=== PATIENT | female | born 1970 | race Caucasian/White ===

== ENCOUNTER → 2017-08-27 15:26 | Outpatient (CLI) | payer OTHER, SELFPAY | PROVIDERS: Family Provider Internal Medicine; PCP Internal Medicine; Visit Provider Otolaryngology Otolaryngology/Facial Plastic Surgery | DX: J32.9 Chronic sinusitis, unspecified (principal) | CPT/HCPCS: 87070; 87205 ==

== ENCOUNTER 2019-03-20 19:02 | Emergency (ER) | payer OTHER, SELFPAY ==
[2019-03-20 19:03] VITALS: BP 147/80; PULSE 86; RESP 16; TEMP 36.7; O2SAT 99; BMI 38.0
--- NOTE | 2019-03-20 20:37 | CT_ITS ---
STUDY: CT BRAIN WITHOUT CONTRAST REASON FOR EXAM: Female, 49 years old. Headache for 3 days. RADIATION DOSAGE (If Supplied By Facility): CTDIvol = ( 44.99 ) mGy, DLP = ( 762.36 ) mGycm TECHNIQUE: Transaxial CT imaging of the brain was performed without administration of intravenous contrast material. Individualized dose optimization techniques were used for this CT. COMPARISON: No relevant priors. FINDINGS: Normal soft tissue structures. Normal calvarium. Normal size ventricles and extra-axial spaces for the patient's age. Normal white matter tracts of the cerebral hemispheres. Normal basal ganglia and thalami. Normal brainstem. Normal cerebellum. There is no intracranial hemorrhage. There are no findings of an acute ischemic infarction. Normal visualized paranasal sinuses. CT/Brain/Head without Contrast IMPRESSION: No evidence of acute intracranial bleed, mass or ischemia. Electronically Signed: Bartolo Wen DO at 21:52 EDT , Service support ,
[2019-03-20 21:29] VITALS: PULSE 86; RESP 16
[2019-03-20 22:17] LABS: Absolute Lymphocyte Count 3.38 X10^3/uL (0.83-4.51); Absolute Neutrophil Count 6.9 X10^3/uL (2.0-7.7); Basophil# 0.09 X10^3/uL; Basophil% 0.8 % (0-1); Eosinophil# 0.28 X10^3/uL; Eosinophils% 2.4 % (0-5); Hematocrit 42.4 % (37-47); Hemoglobin 13.9 g/dL (12.0-15.0); Lymphocyte # 3.38 X10^3/ul (4.0); Lymphocyte % 29.2 % (19-41); Mean Corp Hgb Conc 32.8 g/dL (32-36); Mean Corpuscular Hgb 29.2 pg (27.0-32.0); Mean Corpuscular Volume 89.1 fL (81-99); Mean Platelet Vol. 10.6 fl (6.2-12.0); Monocyte# 0.85 X10^3/uL; Monocyte% 7.3 % (0-10); NRBC Flagged by Analyzer 0 % (0-5); Neutrophil # 6.94 X10^3/uL (2.7-7.7); Platelet Count 278 K/mm3 (150-450); RBC Distribution Width CV 12.3 % (11.6-14.6); RBC Distribution Width SD 40.5 fl (35.1-43.9); Red Blood Count 4.76 M/mm3 (4.2-5.4); White Blood Count 11.6 K/mm3 (4.4-11.0)
[2019-03-20 22:25] LABS: Partial Thromboplast Time 30.9 Seconds (24.1-36.2)
[2019-03-20 22:28] LABS: International Normalized Ratio 1.1; Prothrombin Time (Protime)PT. 14.2 SECONDS (11.7-14.9)
[2019-03-20 22:37] LABS: Anion Gap 8 (5-15); BUN 13 mg/dL (7-18); BUN/Creat Ratio 13.1 RATIO (10-20); Calcium,Total 9.4 mg/dL (8.5-10.1); Chloride 105 mmol/L (98-107); Creatinine, Serum 0.99 mg/dL (0.55-1.02); EST Glomerular Filtration Rate 63 mL/min (>60); Est Glom Filt Rate - Afr Amer 76 mL/min (>60); Estimated Creatinine Clearance 63.64 ml/min; Glucose 97 mg/dL (74-106); Potassium 3.6 mmol/L (3.5-5.1); Sodium Level 140 mmol/L (136-145)
--- NOTE | 2019-03-20 22:57 | ED.VISSUMM ---
- ER Visit Summary Date of Service: 03/20/19 Chief Complaint: Headache History of Present Illness: The patient is a 49 F who presents with a headache that is been getting worse over the past 3 days. Patient describes pain as tightness and pressure. Patient states pain is over the bilateral frontal areas. Patient states she has been taking Motrin which does help. Patient states that today she noted some ecchymosis over the lateral aspect of her right upper eyelid. Patient also admits to some tingling of the left side of her face and left fingers. Patient states she has a strong family history of vascular dementia and she is concerned that there may be vascular problems causing her headache. Physical Examination: Vital signs are stable. Patient is afebrile. Patient is in no acute distress. Pupils are equal, round, and reactive to light bilaterally. Extraocular muscles are intact. There is a small area of ecchymosis over the lateral aspect of the right upper eyelid. There is no tenderness. There is no edema. Oral mucosa is pink and moist. Neck is supple. Trachea is midline. There is no JVD noted. Heart was regular rate and rhythm. Lungs are clear and equal bilaterally. Abdomen is soft. Bowel sounds are normal. There is no tenderness. There is no guarding noted. Skin is warm dry. Cranial nerves II through XII are intact. There are no focal motor or sensory deficits noted. Test Results: CT scan of the brain was obtained. There is no acute intracranial abnormality. CBC and basic metabolic profile were normal. PT with INR was normal. Emergency Department Course and Treatment: Patient did not want an IV or medications. Patient was advised of her results. Patient was feeling better on reevaluation. Patient was instructed to follow-up with her primary care physician in 5 to 7 days. Patient understood and was agreeable with the plan. All questions were answered. Disposition: Discharge home Impression: Headache This note was generated with [employer] dictation software. It may contain incorrect words, spelling, and punctuation that were not noted in review of the chart prior to signing ED Disposition - Plan for ED Patient: Disposition: Home or Assisted Living Diagnosis: Headache Instructions: HEADACHE, Unspecified Referrals: Yohan Ervin MD [Primary Care Provider] - 5-7 Days
[2019-03-20 23:02] VITALS: BP 125/78; RESP 16
== END 2019-03-20 23:06 | disposition home or self-care (01) ==
PROVIDERS: Emergency Provider Emergency Medicine; Family Provider Internal Medicine; PCP Internal Medicine
DX: R51 Headache (principal); I10 Essential (primary) hypertension; E66.9 Obesity, unspecified; Z68.38 Body mass index [BMI] 38.0-38.9, adult; Z79.899 Other long term (current) drug therapy
CPT/HCPCS: 36415; 70450; 80048; 85025; 85610; 85730; 99282; A4216

== ENCOUNTER → 2020-02-05 07:54 | Outpatient (CLI) | payer OTHER, SELFPAY ==
--- NOTE | 2020-02-05 08:04 | US_ITS ---
STUDY: RENAL ULTRASOUND - COMPLETE REASON FOR EXAM: Female, 49 years old. CKD STAGE II TECHNIQUE: Ultrasound evaluation of the kidneys was performed with real-time and static chong-scale imaging. COMPARISON: None. FINDINGS: RIGHT KIDNEY: Normal location of the right kidney, which is normal in size. The right kidney measures 10.7 cm x 4.9 cm x 4.7 cm. There is a normal cortex of the right kidney. The renal cortex measures 1.8 cm. There is no right renal mass or cyst. There are no right renal calculi. There is no right hydronephrosis. DISTAL RIGHT URETER: There is non-visualization of the distal right ureter. There is no demonstrated right ureterovesical junction calculus. There is no demonstrated right ureteral jet. LEFT KIDNEY: Normal location of the left kidney, which is normal in size. The left kidney measures 10 cm x 4 cm x 4.9 cm. There is a normal cortex of the left kidney. The renal cortex measures 1.4 cm. There is no left renal mass or cyst. There are no left renal calculi. There is no left hydronephrosis. DISTAL LEFT URETER: There is non-visualization of the distal left ureter. There is no demonstrated left ureterovesical junction calculus. There is no demonstrated left ureteral jet. BLADDER: The distended urinary bladder has a volume of 113 ml. There is a normal wall thickness of the distended urinary bladder. There is no demonstrated mass within the urinary bladder. There are no demonstrated bladder calculi. US/Kidney and Bladder IMPRESSION: Normal ultrasound of the kidneys and urinary bladder. Electronically Signed: Jairo Borrero, at 11:13 EDT , Service support ,
== END ==
PROVIDERS: PCP Internal Medicine; Referring Provider Internal Medicine Nephrology; Visit Provider Internal Medicine Nephrology
DX: N18.2 Chronic kidney disease, stage 2 (mild) (principal)
CPT/HCPCS: 76770

== ENCOUNTER → 2020-06-04 09:31 | Outpatient (CLI) | payer OTHER, SELFPAY ==
[2020-06-04 10:31] LABS: Albumin, Serum 3.8 g/dL (3.2-5.0); BUN 17 mg/dL (7-18); BUN/Creat Ratio 17.1 RATIO (10-20); Calcium,Total 8.9 mg/dL (8.5-10.1); Chloride 106 mmol/L (98-107); Creatinine, Serum 0.99 mg/dL (0.55-1.02); EST Glomerular Filtration Rate 63 mL/min (>60); Est Glom Filt Rate - Afr Amer 76 mL/min (>60); Glucose 135 mg/dL (74-106); Phosphorus 3.4 mg/dL (2.5-4.9); Potassium 3.9 mmol/L (3.5-5.1); Sodium Level 138 mmol/L (136-145)
== END ==
PROVIDERS: PCP Internal Medicine; Referring Provider Internal Medicine Nephrology; Visit Provider Internal Medicine Nephrology
DX: N18.2 Chronic kidney disease, stage 2 (mild) (principal)
CPT/HCPCS: 36415; 80069

== ENCOUNTER → 2020-06-23 11:56 | Outpatient (CLI) | payer OTHER, SELFPAY ==
--- NOTE | 2020-06-23 12:01 | RAD_ITS ---
STUDY: X-RAY - LEFT WRIST REASON FOR EXAM: Female, 50 years old. Pain in hands x 2 years, swelling in hands x 2 years TECHNIQUE: 2 view(s) of the wrist were obtained. COMPARISON: None. FINDINGS: Normal visualized distal radius and ulna. Normal radiocarpal articulation. Normal distal radioulnar articulation. Normal carpal bones. Normal carpal articulations. Normal carpometacarpal articulation of the thumb. Normal second through fifth carpometacarpal articulations. Normal visualized metacarpal bones. The soft tissue structures are unremarkable. RAD/Wrist 2 Views IMPRESSION: Normal x-ray examination of the wrist. Electronically Signed: Jt Crowley MD at 13:05 EST , Service support ,
--- NOTE | 2020-06-23 12:06 | RAD_ITS ---
STUDY: X-RAY - SACROILIAC JOINTS REASON FOR EXAM: Female, 50 years old. Pain in hips and lower back x years, pain has worsened in last 2 years TECHNIQUE: 4 view(s) of the sacroiliac joints were obtained. COMPARISON: None. FINDINGS: There are degenerative changes of the bilateral sacroiliac joints with subtle subchondral erosions.. Normal visualized sacral ala and sacrum. Normal visualized iliac bones. Normal visualized soft tissue structures. RAD/S-I Jts 3 or More Views IMPRESSION: Degenerative changes of the bilateral sacroiliac joints, as described above. Electronically Signed: Jt rCowley MD at 13:05 EST , Service support ,
--- NOTE | 2020-06-23 12:06 | RAD_ITS ---
STUDY: X-RAY - RIGHT WRIST REASON FOR EXAM: Female, 50 years old. Pain in hands x 2 years, swelling in hands x 2 years TECHNIQUE: 2 view(s) of the wrist were obtained. COMPARISON: None. FINDINGS: Normal visualized distal radius and ulna. Normal radiocarpal articulation. Normal distal radioulnar articulation. Normal carpal bones. Normal carpal articulations. Normal carpometacarpal articulation of the thumb. Normal second through fifth carpometacarpal articulations. Normal visualized metacarpal bones. The soft tissue structures are unremarkable. RAD/Wrist 2 Views IMPRESSION: Normal x-ray examination of the wrist. Electronically Signed: Jt Crowley MD at 13:04 EST , Service support ,
[2020-06-29 20:07] LABS: HLA B27 Negative (.)
== END ==
PROVIDERS: PCP Internal Medicine
DX: L40.9 Psoriasis, unspecified (principal); M25.59 Pain in other specified joint
CPT/HCPCS: 36415; 72202; 73100; 81374

== ENCOUNTER → 2020-07-28 11:21 | Outpatient (CLI) | payer OTHER, SELFPAY ==
[2020-07-28 11:30] LABS: Bacteria 0 SEEN /hpf (None Seen); Mucous, Urine 0 SEEN /hpf (<or=2+); Red Blood Cells-Urine 0 SEEN /hpf (0-5); Squamous Epithelial Cells - UA 0 SEEN /hpf (5-10); White Blood Cells 0 SEEN /hpf (0-5)
--- NOTE | 2020-07-28 11:40 | RAD_ITS ---
STUDY: X-RAY - LEFT HAND REASON FOR EXAM: Female, 50 years old. Pain. TECHNIQUE: 2 view(s) of the hand. COMPARISON: None. FINDINGS: Normal radiocarpal articulation. Normal distal radioulnar joint. Normal visualized carpal bones. Normal carpal articulations Normal carpometacarpal articulation of the thumb. Normal second through fifth carpometacarpal joints. Normal metacarpi. Normal metacarpophalangeal joint of the thumb. Normal interphalangeal joint of the thumb. Normal proximal and distal phalanges of the thumb. Normal metacarpophalangeal joints of the second through fifth fingers. Normal proximal and distal interphalangeal joints of the second through fifth fingers. Normal phalanges of the second through fifth fingers. The soft tissue structures are unremarkable. RAD/Hand 2 Views IMPRESSION: Normal x-ray examination of the hand. Electronically Signed: Jorge Hansen MD at 12:19 EST , Service support ,
--- NOTE | 2020-07-28 11:40 | RAD_ITS ---
STUDY: X-RAY - RIGHT HAND REASON FOR EXAM: Female, 50 years old. Pain. TECHNIQUE: 2 view(s) of the hand. COMPARISON: None. FINDINGS: Normal radiocarpal articulation. Normal distal radioulnar joint. Normal visualized carpal bones. Normal carpal articulations Normal carpometacarpal articulation of the thumb. Normal second through fifth carpometacarpal joints. Normal metacarpi. Normal metacarpophalangeal joint of the thumb. Normal interphalangeal joint of the thumb. Normal proximal and distal phalanges of the thumb. Normal metacarpophalangeal joints of the second through fifth fingers. Normal proximal and distal interphalangeal joints of the second through fifth fingers. Normal phalanges of the second through fifth fingers. The soft tissue structures are unremarkable. RAD/Hand 2 Views IMPRESSION: Normal x-ray examination of the hand. Electronically Signed: Jorge Hansen MD at 12:19 EST , Service support ,
[2020-07-28 12:06] LABS: Color, Urine Yellow (Yellow); Glucose, Dipstick Normal (Normal); Ketone-Dipstick Negative (Negative); Leukocyte Esterase-Dipstick Negative /ul (Negative); Nitrite-Dipstick Negative (Negative); Occult Blood-Urine Negative /ul (Negative); Protein-Dipstick Negative (Negative); Urine Bilirubin Dipstick Negative (Negative); Urine Clarity Clear (Clear); Urine Urobilinogen Normal (Normal); Urine pH 6.5 (5.0 - 8.0)
[2020-07-29 14:09] LABS: RNP Ab <0.2 AI (0.0-0.9); Smith Ab <0.2 AI (0.0-0.9)
[2020-07-29 14:46] LABS: Anti-dsDNA Ab <1 IU/mL (0-9)
[2020-07-30 08:08] LABS: Dilute Prothrombin Time (dPT) 43.6 sec (0.0-55.0); Dilute Russell Viper Venom 40.5 sec (0.0-47.0); PTT-LA 37.7 sec (0.0-51.9); Thrombin Time 17.2 sec (0.0-23.0); dPT Confirm Ratio 1.15 Ratio (0.00-1.40)
[2020-07-30 10:21] LABS: Anti-Cardiolipin Ab, IgA, Qn < 9 APL U/mL (0-11); Anti-Cardiolipin Ab, IgG, Qn < 9 GPL U/mL (0-14); Anti-Cardiolipin Ab, IgM, Qn 13 MPL U/mL (0-12); Beta-2-Glycoprotein I IgA <9 (0-25); Beta-2-Glycoprotein I IgG <9 (0-20); Beta-2-Glycoprotein I IgM <9 (0-32); Complement C3 156 mg/dL (82-167); Interpretation Comment: (.)
== END ==
PROVIDERS: PCP Internal Medicine
DX: R76.0 Raised antibody titer (principal); M25.59 Pain in other specified joint
CPT/HCPCS: 36415; 73120; 81001; 86146; 86147; 86160; 86225; 86235

== ENCOUNTER → 2020-08-20 12:33 | Outpatient (CLI) | payer OTHER, SELFPAY ==
--- NOTE | 2020-08-20 13:00 | MRI_ITS ---
STUDY: MRI SACROILIAC JOINTS REASON FOR EXAM: Low back and bilateral hip pain, evaluate for erosions of the sacroiliac joints. TECHNIQUE: Standardized fat and water weighted pulse sequences were obtained in all 3 orthogonal planes. COMPARISON: Radiographs 06/23/2020. FINDINGS: Normal bilateral sacral alae. There is subchondral sclerosis adjacent to the left sacroiliac joint (T1 coronal images 16-18). There are no osseous erosions or periarticular bone edema of the bilateral sacroiliac joints. There is limited visualization of the bilateral iliac wings, without demonstrated abnormality. Normal visualized sacral vertebrae. There is mild anterolisthesis of the second coccygeal segment (T1 sagittal image 18). Normal visualized presacral adipose space. The visualized soft tissue structures of the pelvis are unremarkable. MRI/Pelvis (Routine) IMPRESSION: Subchondral sclerosis adjacent to the left sacroiliac joint without osseous erosions of the sacroiliac joints or periarticular bone edema to indicate active spondyloarthropathy. Mild anterolisthesis of the second coccygeal segment.. Electronically Signed: Ramirez Rachel MD at 13:53 EDT Tel , Service support ,
== END ==
PROVIDERS: PCP Internal Medicine
DX: M46.1 Sacroiliitis, not elsewhere classified (principal); M14.88 Arthropathies in other specified diseases classified elsewhere, vertebrae
CPT/HCPCS: 72195

== ENCOUNTER → 2020-09-17 15:31 | Outpatient (CLI) | payer OTHER, SELFPAY | PROVIDERS: PCP Internal Medicine; Referring Provider Otolaryngology; Visit Provider Otolaryngology | DX: J32.9 Chronic sinusitis, unspecified (principal) | CPT/HCPCS: 87070; 87205 ==

== ENCOUNTER → 2020-11-22 10:50 | Outpatient (CLI) | payer OTHER, SELFPAY | PROVIDERS: PCP Internal Medicine; Referring Provider Internal Medicine Nephrology; Visit Provider Internal Medicine Nephrology | DX: Z00.00 Encounter for general adult medical examination without abnormal findings (principal) ==

== ENCOUNTER → 2020-11-23 11:06 | Outpatient (CLI) | payer OTHER, SELFPAY ==
[2020-11-23 12:05] LABS: Albumin, Serum 3.8 g/dL (3.2-5.0); BUN 18 mg/dL (7-18); BUN/Creat Ratio 18.3 RATIO (10-20); Calcium,Total 8.8 mg/dL (8.5-10.1); Chloride 106 mmol/L (98-107); Creatinine, Serum 0.99 mg/dL (0.55-1.02); EST Glomerular Filtration Rate 63 mL/min (>60); Est Glom Filt Rate - Afr Amer 76 mL/min (>60); Glucose 116 mg/dL (74-106); Phosphorus 3.4 mg/dL (2.5-4.9); Potassium 3.9 mmol/L (3.5-5.1); Sodium Level 137 mmol/L (136-145)
== END ==
PROVIDERS: PCP Internal Medicine; Referring Provider Internal Medicine Nephrology; Visit Provider Internal Medicine Nephrology
DX: N18.2 Chronic kidney disease, stage 2 (mild) (principal)
CPT/HCPCS: 36415; 80069

== ENCOUNTER → 2021-01-28 09:54 | Outpatient (CLI) | payer OTHER, SELFPAY ==
[2021-01-28 10:56] LABS: Protein, Urine (Random) 9.1 mg/dL (<11.9); Protein:Creat Ratio 75 mg/g CRE (0-200)
[2021-01-28 11:04] LABS: Albumin, Serum 3.7 g/dL (3.2-5.0); BUN 19 mg/dL (7-18); BUN/Creat Ratio 20.9 RATIO (10-20); Calcium,Total 9.3 mg/dL (8.5-10.1); Chloride 104 mmol/L (98-107); Creatinine, Serum 0.91 mg/dL (0.55-1.02); EST Glomerular Filtration Rate 69 mL/min (>60); Est Glom Filt Rate - Afr Amer 84 mL/min (>60); Glucose 134 mg/dL (74-106); Phosphorus 3.3 mg/dL (2.5-4.9); Potassium 3.8 mmol/L (3.5-5.1); Sodium Level 138 mmol/L (136-145)
== END ==
PROVIDERS: PCP Internal Medicine; Referring Provider Internal Medicine Nephrology; Visit Provider Internal Medicine Nephrology
DX: N18.2 Chronic kidney disease, stage 2 (mild) (principal)
CPT/HCPCS: 36415; 80069; 82570; 84156

== ENCOUNTER → 2021-02-01 11:12 | Outpatient (CLI) | payer OTHER, SELFPAY ==
[2021-02-01 11:18] LABS: Bacteria 0 SEEN /hpf (None Seen); Mucous, Urine 0 SEEN /hpf (<or=2+); Red Blood Cells-Urine 0 SEEN /hpf (0-5); Squamous Epithelial Cells - UA 0 SEEN /hpf (5-10); White Blood Cells 0 SEEN /hpf (0-5)
[2021-02-01 12:06] LABS: Color, Urine Straw (Yellow); Glucose, Dipstick Normal (Normal); Ketone-Dipstick Negative (Negative); Leukocyte Esterase-Dipstick Negative /ul (Negative); Nitrite-Dipstick Negative (Negative); Occult Blood-Urine Negative /ul (Negative); Protein-Dipstick Negative (Negative); Urine Bilirubin Dipstick Negative (Negative); Urine Clarity Clear (Clear); Urine Urobilinogen Normal (Normal); Urine pH 6.5 (5.0 - 8.0)
== END ==
PROVIDERS: PCP Internal Medicine; Referring Provider Internal Medicine Nephrology; Visit Provider Internal Medicine Nephrology
DX: N39.0 Urinary tract infection, site not specified (principal)
CPT/HCPCS: 81001

== ENCOUNTER 2021-02-17 13:08 | Observation (INO) | payer OTHER, SELFPAY ==
[2021-02-17] VITALS (16 sets, daily range): BP systolic 108–143; BP diastolic 62–88; PULSE 64–85; RESP 13–18; TEMP 36.6–36.7; O2SAT 96–100; BMI 41.4; BMI 39.3
--- NOTE | 2021-02-17 13:15 | RAD_ITS ---
STUDY: X-RAY CHEST REASON FOR EXAM: Female, 50 years old. Neuro deficit, acute, stroke suspected TECHNIQUE: Single AP portable view of the chest. COMPARISON: Comparison is made with prior study dated 09/28/2011. FINDINGS: EKG electrodes are seen. The lungs are clear and expanded. There is no demonstrated pleural abnormality. Normal size heart. Normal mediastinum and sunita. Normal visualized pulmonary arteries. Normal visualized aortic arch and descending thoracic aorta. Normal visualized thoracic spine. Normal visualized ribs, clavicles, and shoulders. There is no demonstrated abnormality of the visualized soft tissue structures of the upper abdomen. RAD/Chest 1 View IMPRESSION: Normal x-ray examination of the chest. Electronically Signed: Jairo Borrero MD at 14:18 EDT , Service support ,
--- NOTE | 2021-02-17 13:15 | CT_ITS ---
STUDY: CT HEAD STROKE PROTOCOL W/O CONTRAST INJECTION REASON FOR EXAM: Female, 50 years old. Neuro deficit, acute, stroke suspected RADIATION DOSAGE (If Supplied By Facility): CTDIvol = ( 38.43 ) mGy, DLP = ( 698.28 ) mGycm TECHNIQUE: Transaxial CT imaging of the brain was performed without administration of intravenous contrast material. Individualized dose optimization techniques were used for this CT. COMPARISON: Comparison is made with prior examination in 03/20/2019. FINDINGS: Normal soft tissue structures. Normal calvarium. Normal size ventricles and extra-axial spaces for the patient''s age. Normal white matter tracts of the cerebral hemispheres. Normal basal ganglia and thalami. Normal brainstem. Normal cerebellum. There is no intracranial hemorrhage. There are no findings of an acute ischemic infarction. Normal visualized paranasal sinuses. CT/STROKE Brain/Head without Cont IMPRESSION: Normal unenhanced CT scan of the brain. N.B. : The above Results were Read Back by Jairo Borrero MD to Moustapha Hinton and understanding confirmed on 02/17/2021 13:27:57 (ET). Electronically Signed: Jairo Borrero MD at 13:29 EDT , Service support ,
--- NOTE | 2021-02-17 13:15 | EKG12_ITS ---
Test Reason : STROKE Blood Pressure : / mmHG Vent. Rate : 084 BPM Atrial Rate : 084 BPM P-R Int : 152 ms QRS Dur : 084 ms QT Int : 394 ms P-R-T Axes : 052 004 030 degrees QTc Int : 465 ms Normal sinus rhythm Normal ECG Confirmed by MICHOACANO COWAN, MAREK ([id number]), animal pathology teacher ELIF BACH ([id number]) on 02/21/2021 7:56:49 AM Referred By: BB/RU Confirmed By:MAREK RÍOS MD
--- NOTE | 2021-02-17 13:16 | EDS_ITS ---
HPI History of Present Illness Chief Complaint: Neuro S/Sx Informant: patient Onset/Context/Timing Onset: Today Context: Sudden Onset Timing: Continuous Quality and Location: Positive for Left Face Parasthesia, Left Arm Parasthesia and Left Leg Parasthesia Associated Symptoms Associated Symptoms: Positive for Headache; Negative for Nausea, Vomiting and Chest Pain Narrative Narrative: Starting at 930 this morning while she was driving home from an appointment, she started having fuzzy vision mild headache, trouble putting thoughts together. This progressed to developing numbness and some weakness in her left arm and leg, as well as some paresthesias in her left lower face only. The symptoms have all persisted. She can speak okay and understand others okay. No history of stroke or migraines or seizures. No recent injury, travel, hospitalization, or illness. She has decided not to get Covid vaccine. She states her head feels funny/fuzzy. Had a similar episode once before but it did not last very long and she did not get seen for it. [facility] Medical History (Updated 02/17/21 @ 13:[address] Moustapha Hinton MD) Chronic kidney disease Hypertension Home Medications spironolactone 50 mg PO DAILY 02/04/16 [History Last Taken 02/17/21] bisoprolol-hydrochlorothiazide 1 tab PO DAILY 03/20/19 [History Last Taken 02/17/21] cholecalciferol (vitamin D3) 25 mcg PO DAILY 02/17/21 [History Last Taken 02/17/21] cranberry fruit 475 mg PO BID 02/17/21 [History Last Taken 02/17/21] losartan 25 mg PO DAILY 02/17/21 [History Last Taken 02/17/21] multivitamin 1 tab PO DAILY 02/17/21 [History Last Taken 02/16/21] pantoprazole 20 mg PO DAILY 02/17/21 [History Last Taken 02/17/21] turmeric root extract 500 mg PO DAILY 02/17/21 [History Last Taken 02/17/21] Allergy/AdvReac Type Severity Reaction Status Date / Time ciprofloxacin [From Cipro] Allergy Rash Verified 02/17/21 13:24 codeine Allergy Rash Verified 02/17/21 13:24 Penicillins Allergy Rash Verified 02/17/21 13:24 Sulfa (Sulfonamide Allergy Anaphylaxis Verified 02/17/21 13:24 Antibiotics) zolpidem [From Ambien] Allergy Rash Verified 02/17/21 13:24 OPIATES Allergy Itching Uncoded 02/17/21 13:24 Surgical History (Updated 02/17/21 @ 13:24 by Ju Ferreira) History of hysterectomy Social History Smoking Status: Never smoker ROS ROS ED Constitutional Constitutional ED: Denies chills or fever(s) Eyes Eyes: Reports change in vision bilateral; Denies diplopia ENT ENT ED: Denies rhinorrhea or sore throat Cardiovascular Cardiovascular: Denies chest pain or palpitations Respiratory/Chest Respiratory/Chest: Denies cough or dyspnea Gastrointestinal Gastrointestinal: Denies abdominal pain, diarrhea, nausea or vomiting Genitourinary Genitourinary ED: Denies dysuria or hematuria Musculoskeletal Musculoskeletal: Denies back pain or neck pain Integumentary Denies abscess or rash Neurologic Neurologic: Reports headache(s), paresthesias and weakness Psychiatric Psychiatric: Denies anxiety or suicidal thoughts EXAM Physical Exam Const Vital Signs: 02/17/21 13:09 02/17/21 13:12 02/17/21 13:28 Temperature 98 F 98 F Temperature Source Temporal Temporal Pulse Rate 85 85 Respiratory Rate 16 16 Blood Pressure 143/88 H 143/88 H Blood Pressure Mean 106 106 Blood Pressure Source Blood Pressure Position Blood Pressure Location Pulse Ox 98 98 Oxygen Delivery Method Room Air Room Air Room Air 02/17/21 13:38 02/17/21 13:45 02/17/21 14:15 Temperature Temperature Source Pulse Rate 74 74 77 Respiratory Rate 15 18 16 Blood Pressure 143/88 H 112/66 108/81 H Blood Pressure Mean 106 81 90 Blood Pressure Source Monitor Blood Pressure Position Sitting Blood Pressure Location Right Arm Pulse Ox 96 97 97 Oxygen Delivery Method Room Air Room Air Room Air 02/17/21 14:45 02/17/21 15:15 02/17/21 15:45 Temperature Temperature Source Pulse Rate 72 78 74 Respiratory Rate 18 16 16 Blood Pressure 113/62 113/80 Blood Pressure Mean 79 91 Blood Pressure Source Blood Pressure Position Blood Pressure Location Pulse Ox 97 96 Oxygen Delivery Method Room Air Room Air 02/17/21 16:15 02/17/21 16:40 Temperature Temperature Source Pulse Rate 64 74 Respiratory Rate 18 16 Blood Pressure Blood Pressure Mean Blood Pressure Source Blood Pressure Position Blood Pressure Location Pulse Ox 98 97 Oxygen Delivery Method Room Air Room Air Positive well nourished and well developed General Appearance ED: well developed and NAD HEENT Reports moist mucous membranes normocephalic and atraumatic Eyes PERRL and EOMs intact bilaterally Neck full ROM and supple Resp normal respiratory effort and clear to auscultation bilaterally Cardio regular rate, regular rhythm and no murmurs GI non-tender and non-distended Auscultation: normoactive bowel sounds Palpation: soft Back/Spine no CVA tenderness General Back: other FROM Extremity normal to inspection General Extremety ED: Negative for edema, pulses abnormal or tenderness General Extremity: Negative for edema or pulses abnormal Neuro oriented x3 Neuro Narrative: Normal [id number] and [id number]. No aphasia or dysarthria. No hemineglect. Sensorium / Orientation: awake and alert Skin no rashes or lesions noted and no wounds STROKE Vital Signs/Narrative: Vital Signs Temp Pulse Resp BP Pulse Ox 02/17/21 16:40 74 16 97 02/17/21 16:15 64 18 98 02/17/21 15:45 74 16 02/17/21 15:15 78 16 113/80 96 02/17/21 14:45 72 18 113/62 97 02/17/21 14:15 77 16 108/81 H 97 02/17/21 13:45 74 18 112/66 97 02/17/21 13:38 74 15 143/88 H 96 02/17/21 13:12 98 F 85 16 143/88 H 98 02/17/21 13:09 98 F 85 16 143/88 H 98 NIHSS Initial: 1a Level of Consciousness: 0 1b LOC Questions (Score 2 if aphasic/stupor): 0 1c LOC Commands (Only score 1st attempt): 0 2 Best Gaze (If aphasic, use reflexive mvmts.): 0 3 Visual: 0 4 Facial Palsy: 0 5 Motor Arm Right (UN = amputation/fusion): 0 5 Motor Arm Left: 0 6 Motor Leg Right: 0 6 Motor Leg Left: 1 7 Limb ataxia (Only + if out of proportion): 0 8 Sensory (Aphasia/stupor=0 or 1, coma=2): 1 9 Best Language: 0 10 Dysarthria (mute, coma=2, intubated=UN): 0 11 Extinction and Inattention (only scored if +): 0 Total Score: 2 MDM MDM MDM Narrative Medical decision making narrative: Discussed with patient about alteplase, she states that she is somewhat familiar with it and used to work in an emergency department. She agrees that these deficits, if caused by stroke, would be a disabling deficit. We discussed pros and cons of TPA including 6% risk of hemorrhage, she would be agreeable to getting the medication. It was ordered, she was sent to CT, it is negative, we discussed risk and benefits and she is okay getting alteplase. It was ordered. The patient returned from CT, it was negative, her symptoms are still there. Neurology did their assessment after discussing with her. She has no drift in her left lower extremity now, the patient states that her head is feeling better, her vision is now back to normal, and as the alteplase arrives the patient states that the tingling is imp roving but still present in her left lower face, left hand, left foot. The neurologist states that her deficits are too minimal and improving and does NOT recommend giving alteplase at this time, which is about 4 hours from the onset of symptoms. I discussed again with the patient regarding her symptoms and whether they were improving or still there, we discussed the fact that she was having trouble walking prior to coming here. We immediately disconnected her from the monitor and got her up to walk, she walked around the room twice and said that she felt like it was normal and her head was feeling better. Therefore we will be admitting her for further work-up without giving TPA at this time since she was a candidate and things changed. CTA was obtained and negative for LVO. Lab Data Attestation: I reviewed the patient's lab results. Labs: Laboratory Results - last 24 hr 02/17/21 02/17/21 02/17/21 13:25 13:25 13:25 WBC 11.7 H RBC 4.89 Hgb 14.2 Hct 43.0 MCV 87.9 MCH 29.0 MCHC 33.0 RDW Std Deviation 41.1 RDW Coeff of Javed 12.7 Plt Count 325 MPV 10.3 Immature Gran % (Auto) 0.500 Neut % (Auto) 61.8 Lymph % (Auto) 27.8 Stark % (Auto) 7.0 Eos % (Auto) 2.3 Baso % (Auto) 0.6 Absolute Neuts (auto) 7.2 Absolute Lymphs (auto) 3.24 Nucleated RBC % 0 PT 13.2 INR 1.1 APTT 31.8 Sodium 137 Potassium 3.7 Chloride 102 Carbon Dioxide 30.0 Anion Gap 5 BUN 20 H Creatinine 1.02 Estim Creat Clear Calc 58.72 Est GFR (MDRD) Af Amer 73 Est GFR (MDRD) Non-Af 61 BUN/Creatinine Ratio 19.6 Glucose 117 H Calcium 9.3 Troponin I High Sens 5 Radiography Diagnostic Testing: Radiology Impression Brain CT 02/17/21 13:15 IMPRESSION: Normal unenhanced CT scan of the brain. N.B. : The above Results were Read Back by Jairo Borrero MD to Moustapha Hinton and understanding confirmed on 02/17/2021 13:27:57 (ET). Electronically Signed: Jairo Borrero MD at 13:29 EDT , Service support , ADDENDUM: 02/17/21 1336 IMPRESSION: Normal unenhanced CT scan of the brain. N.B. : The above Results were Read Back by Jairo Borrero MD to Moustapha Hinton and understanding confirmed on 02/17/2021 13:27:57 (ET). Electronically Signed: Jairo Borrero MD at 13:29 EDT , Service support , Chest X-Ray 02/17/21 13:15 IMPRESSION: Normal x-ray examination of the chest. Electronically Signed: Jairo Borrero MD at 14:18 EDT , Service support , Head/Neck CTA 02/17/21 13:42 IMPRESSION: Normal CTA Head and neck with contrast. Electronically Signed: Jairo Borrero MD at 14:30 EDT , Service support , EKG Initial EKG: Attestation: I personally reviewed and interpreted this EKG as follows: Interpretation: Sinus Rhythm and No Acute Injury Pattern Comments: Normal EKG Stroke Documentation Questions Stroke Team Activated: Yes Reviewed Inclusion/Exclusion criteria: Yes Was Patient considered for Endovascular Intervention?: No (Negative CTA) IV Alteplase (t-PA) Administered: No (See above) Alteplase (t-PA) risks, benefits, alternative discussed: Yes Critical Care Time Critical Care Time: Yes Critical care time (excluding procedures): 30-74 minutes (40 min), Including time spent:, Discussing w/Patient &/or Family/Screener [employer] Blender, Discussing w/Consultants, Arranging Admission or Transfer and Performing Direct Patient Care at Bedside Discharge Plan Dx/Rx/DC Orders Clinical Impression: Brain TIA Disposition Disposition: Acute Care Hospital [facility]
[2021-02-17 13:34] LABS: Absolute Lymphocyte Count 3.24 X10^3/uL (0.83-4.51); Absolute Neutrophil Count 7.2 X10^3/uL (2.0-7.7); Basophil# 0.07 X10^3/uL; Basophil% 0.6 % (0-1); Eosinophil# 0.27 X10^3/uL; Eosinophils% 2.3 % (0-5); Hemoglobin 14.2 g/dL (12.0-15.0); Lymphocyte # 3.24 X10^3/ul (0.83-4.51); Lymphocyte % 27.8 % (19-41); Mean Corpuscular Volume 87.9 fL (81-99); Mean Platelet Vol. 10.3 fl (6.2-12.0); Monocyte# 0.82 X10^3/uL; NRBC Flagged by Analyzer 0 % (0-5); Neutrophil # 7.19 X10^3/uL (2.7-7.7); Neutrophil % 61.8 % (47-70); Platelet Count 325 K/mm3 (150-450); RBC Distribution Width CV 12.7 % (11.6-14.6); RBC Distribution Width SD 41.1 fl (35.1-43.9); Red Blood Count 4.89 M/mm3 (4.2-5.4); White Blood Count 11.7 K/mm3 (4.4-11.0)
--- NOTE | 2021-02-17 13:42 | CT_ITS ---
STUDY: CTA HEAD AND NECK WITH CONTRAST REASON FOR EXAM: Female, 50 years old. Acute neurologic deficit RADIATION DOSAGE (If Supplied By Facility): CTDIvol = ( 22.16 ) mGy, DLP = ( 703.58 ) mGycm TECHNIQUE: CT angiography was performed with a multi-detector CT scanner. Data acquisition was obtained from the skull base through the vertex following intravenous administration of IV 100mL [id number]-370. MIP images were reconstructed from the axial data set. Post-processing of the angiographic images was performed, with multiplanar reformation and 3D reconstruction. Individualized dose optimization techniques were used for this CT. COMPARISON: No relevant priors. FINDINGS: Normal bilateral petrous carotid arteries. Normal right cavernous carotid artery with a normal supraclinoid bifurcation. Normal left cavernous carotid artery with a normal supraclinoid bifurcation. Normal right A1 segments of the anterior cerebral artery. Normal left A1 segments of the anterior cerebral artery. Normal intact anterior communicating artery (ACOM). Normal bilateral A2 segments of the anterior cerebral arteries. Normal right M1 and M2 segments of the middle cerebral arteries, with a normal M1 bifurcation. Normal left M1 and M2 segments of the middle cerebral arteries, with a normal M1 bifurcation. Normal right posterior communicating artery (PCOM). Normal left posterior communicating artery (PCOM). Normal bilateral vertebral arteries. Normal basilar artery with a normal basilar bifurcation. The visualized bilateral superior cerebellar (SCA) arteries are normal. Normal bilateral P1, P2 and visualized P3 segments of the posterior cerebral arteries. There is no demonstrated aneurysm of the [place]. There is no demonstrated abnormality of the visualized brain. AORTIC ARCH: There is atherosclerotic calcific plaque formation of the aortic arch and great vessels arising from the aortic arch, without a hemodynamically significant stenosis. There is a bovine origin of the great vessels with a common origin of the brachiocephalic and left common carotid artery. Normal origin of the left subclavian artery. RIGHT CAROTID ARTERIES: Normal right common carotid artery (CCA). Normal right common carotid bulb. Normal origin of the right internal carotid (ICA) artery without a hemodynamically significant stenosis. Normal visualized cervical portion of the right internal carotid artery. Normal origin of the right external carotid artery (ECA). LEFT CAROTID ARTERIES: Normal left common carotid artery (CCA). Normal left common carotid bulb. Normal origin of the left internal carotid (ICA) artery without a hemodynamically significant stenosis. Normal visualized cervical portion of the left internal carotid artery. Normal origin of the left external carotid artery (ECA). VERTEBRAL ARTERIES: Normal bilateral vertebral arteries. CT/CTA Head AND Neck W/ Contrast IMPRESSION: Normal CTA Head and neck with contrast. Electronically Signed: Jairo Borrero MD at 14:30 EDT , Service support ,
[2021-02-17 13:43] LABS: International Normalized Ratio 1.1; Partial Thromboplast Time 31.8 Seconds (24.1-36.2); Prothrombin Time (Protime)PT. 13.2 SECONDS (11.7-14.9)
[2021-02-17 13:50] LABS: Anion Gap 5 (5-15); BUN 20 mg/dL (7-18); BUN/Creat Ratio 19.6 RATIO (10-20); Calcium,Total 9.3 mg/dL (8.5-10.1); Chloride 102 mmol/L (98-107); Creatinine, Serum 1.02 mg/dL (0.55-1.02); EST Glomerular Filtration Rate 61 mL/min (>60); Est Glom Filt Rate - Afr Amer 73 mL/min (>60); Estimated Creatinine Clearance 58.72 ml/min; Glucose 117 mg/dL (74-106); Potassium 3.7 mmol/L (3.5-5.1); Sodium Level 137 mmol/L (136-145); Troponin-I HS 5 pg/mL (3.0-54.0)
[2021-02-17] MEDS: 0.9% Normal Saline 1,000 ML 100 ML IV (14:00)
--- NOTE | 2021-02-17 17:21 | HP.PCM.HOS_ITS ---
HPI - General General Date of Admission: 02/17/21 Date of Service: 02/17/21 Chief Complaint: Left-sided numbness HPI Narrative SONIA HART, is a 50 F who presents presents with left-sided numbness. Last night, patient had a headache. Today, with water aerobics and felt well and felt energized. Shortly afterwards, patient felt some pressure behind her eyes. She went home and pressure became frontal headache and shortly afterwards started experiencing left-sided numbness. Was concerned and presented to the emergency room. In the emergency room, patient underwent a head CT showed no acute process. There contemplating the patient TPA but the patient's neurologic symptoms were improving so decision was made to not give TPA and to admit the patient. Patient stated her headache is much better at this time. Patient has had intermittent headaches before but never had any neurologic symptoms like this before. Patient has never had a TIA or stroke before. FORMERLY [facility] Medical History Chronic kidney disease Hypertension Psoriatic arthritis Home Medications spironolactone 50 mg PO DAILY 02/04/16 [History Last Taken 02/17/21] bisoprolol-hydrochlorothiazide 1 tab PO DAILY 03/20/19 [History Last Taken 02/17/21] cholecalciferol (vitamin D3) 25 mcg PO DAILY 02/17/21 [History Last Taken 02/17/21] cranberry fruit 475 mg PO BID 02/17/21 [History Last Taken 02/17/21] losartan 25 mg PO DAILY 02/17/21 [History Last Taken 02/17/21] multivitamin 1 tab PO DAILY 02/17/21 [History Last Taken 02/16/21] pantoprazole 20 mg PO DAILY 02/17/21 [History Last Taken 02/17/21] turmeric root extract 500 mg PO DAILY 02/17/21 [History Last Taken 02/17/21] Allergy/AdvReac Type Severity Reaction Status Date / Time ciprofloxacin [From Cipro] Allergy Rash Verified 02/17/21 13:24 codeine Allergy Rash Verified 02/17/21 13:24 Penicillins Allergy Rash Verified 02/17/21 13:24 Sulfa (Sulfonamide Allergy Anaphylaxis Verified 02/17/21 13:24 Antibiotics) zolpidem [From Ambien] Allergy Rash Verified 02/17/21 13:24 OPIATES Allergy Itching Uncoded 02/17/21 13:24 Family History (Updated 02/17/21 @ 17:[address] Rafiq Crowe DO) Other CVA (cerebral vascular accident) Dementia Heart disease Surgical History History of hysterectomy Social History (Updated 02/17/21 @ 17:[address] Rafiq Crowe DO) adopted: No household members: spouse current occupational exposures/hazards: No Smoking Status: Never smoker alcohol intake: current alcohol intake frequency: a few times a month substance use type: does not use ROS ROS Narrative All review of systems were negative except as mentioned above in the history of present illness and the other review of systems. Vital Signs Vital Signs Vital Signs: 02/17/21 13:09 02/17/21 13:12 02/17/21 13:28 Temperature 36.6 C 36.6 C Temperature Source Temporal Temporal Pulse Rate 85 85 Respiratory Rate 16 16 Blood Pressure 143/88 H 143/88 H Blood Pressure Mean 106 106 Blood Pressure Source Blood Pressure Position Blood Pressure Location Pulse Ox 98 98 Oxygen Delivery Method Room Air Room Air Room Air 02/17/21 13:38 02/17/21 13:45 02/17/21 14:15 Temperature Temperature Source Pulse Rate 74 74 77 Respiratory Rate 15 18 16 Blood Pressure 143/88 H 112/66 108/81 H Blood Pressure Mean 106 81 90 Blood Pressure Source Monitor Blood Pressure Position Sitting Blood Pressure Location Right Arm Pulse Ox 96 97 97 Oxygen Delivery Method Room Air Room Air Room Air 02/17/21 14:45 02/17/21 15:15 02/17/21 15:45 Temperature Temperature Source Pulse Rate 72 78 74 Respiratory Rate 18 16 16 Blood Pressure 113/62 113/80 Blood Pressure Mean 79 91 Blood Pressure Source Blood Pressure Position Blood Pressure Location Pulse Ox 97 96 Oxygen Delivery Method Room Air Room Air 02/17/21 16:15 02/17/21 16:40 Temperature Temperature Source Pulse Rate 64 74 Respiratory Rate 18 16 Blood Pressure Blood Pressure Mean Blood Pressure Source Blood Pressure Position Blood Pressure Location Pulse Ox 98 97 Oxygen Delivery Method Room Air Room Air Weight Weight: 112.9 kg Body Mass Index (BMI) 41.4 Physical Exam Const alert, oriented x3, no apparent distress and healthy appearing General Appearance: cooperative HEENT normocephalic and head/scalp atraumatic Eyes PERRL and EOMs intact bilaterally Neck no lymphadenopathy and no JVD Resp normal respiratory effort, no retractions, no use of accessory muscles and clear to auscultation bilaterally Cardio regular rate, regular rhythm, S1 normal heart sound and S2 normal heart sound GI normal to inspection, nondistended, normoactive bowel sounds, soft to palpation and non-distended Extremity normal to inspection and full ROM Skin no rashes or lesions noted, no wounds and skin turgor normal Neuro oriented x3, CN's II-XII intact bilaterally, moves all extremities and no focal motor deficits Sensorium / Orientation: awake and alert Coordination / Balance: [id number]-[id number] test normal and cgyu-jr-[id number] test normal Speech: speech normal Motor Exam: strength 5/5 throughout Psych affect normal Results Lab / Micro Data Attestation: I reviewed the patient's lab results. Result Diagrams: 02/17/21 13:25 02/17/21 13:25 Labs: Laboratory Results - last 24 hr 02/17/21 13:25: WBC 11.7 H, RBC 4.89, Hgb 14.2, Hct 43.0, MCV 87.9, MCH 29.0, MCHC 33.0, RDW Std Deviation 41.1, RDW Coeff of Javed 12.7, Plt Count 325, MPV 10.3, Immature Gran % (Auto) 0.500, Neut % (Auto) 61.8, Lymph % (Auto) 27.8, [place] % (Auto) 7.0, Eos % (Auto) 2.3, Baso % (Auto) 0.6, Absolute Neuts (auto) 7.2, Absolute Lymphs (auto) 3.24, Nucleated RBC % 0 02/17/21 13:25: PT 13.2, INR 1.1, APTT 31.8 02/17/21 13:25: Sodium 137, Potassium 3.7, Chloride 102, Carbon Dioxide 30.0, Anion Gap 5, BUN 20 H, Creatinine 1.02, Estim Creat Clear Calc 58.72, Est GFR (MDRD) Af Amer 73, Est GFR (MDRD) Non-Af 61, BUN/Creatinine Ratio 19.6, Glucose 117 H, Calcium 9.3, Troponin I High Sens 5 EKG Initial EKG: Attestation: I personally reviewed and interpreted this EKG as follows: Prior EKG tracings: available for review EKG Rhythm Intrepretation: Sinus Rhythm Radiology Impression Brain CT 02/17/21 13:15 IMPRESSION: Normal unenhanced CT scan of the brain. N.B. : The above Results were Read Back by Jairo Borrero MD to Moustapha Hinton and understanding confirmed on 02/17/2021 13:27:57 (ET). Electronically Signed: Jairo Borrero MD at 13:29 EDT , Service support , ADDENDUM: 02/17/21 1336 IMPRESSION: Normal unenhanced CT scan of the brain. N.B. : The above Results were Read Back by Jairo Borrero MD to Moustapha Hinton and understanding confirmed on 02/17/2021 13:27:57 (ET). Electronically Signed: Jairo Borrero MD at 13:29 EDT , Service support , Chest X-Ray 02/17/21 13:15 IMPRESSION: Normal x-ray examination of the chest. Electronically Signed: Jairo Borrero MD at 14:18 EDT , Service support , Head/Neck CTA 02/17/21 13:42 IMPRESSION: Normal CTA Head and neck with contrast. Electronically Signed: Jairo Borrero MD at 14:30 EDT , Service support , Assessment & Plan Assessment/Plan (1) Left sided numbness: PLAN: 1. Left-sided numbness * Improving * Current NIH is 0 * Did not receive TPA as symptoms were improving from presentation * Seen by [facility] teleneurology who recommend MRI of the brain. Patient had a CTA of the brain so I will not be ordering an MRA. Check lipid panel. * Etiology could be stroke/TIA or atypical migraine. This was discussed with the patient. * Additionally, will have therapy evaluation, bedside swallow evaluation as well as a 2D echocardiogram 2. Psoriatic arthritis * No obvious joint degeneration * Patient not interested in methotrexate at this time * Recommend follow-up with rheumatology as outpatient 3. VTE prophylaxis: Not indicated as patient is currently observation status at this time. 4.Prior history of COVID-19. Patient said that she contracted an [place]. She has not been vaccinated. I encouraged patient to get vaccinated. Patient made aware that she could receive the vaccine while she is here in the hospital. She did not answer in the affirmative whether or not she would take it or not. 4 Charges/Coding Visit Charges OBSV E&M: 69552 Initial observation care L3
--- NOTE | 2021-02-17 17:25 | ECHOD_ITS ---
Reason For Study: TIA/CVA Procedure This was a 2D Doppler, Color Flow transthoracic echocardiogram. Exam performed portable in patient room. Left Ventricle Normal left ventricle. The estimated ejection fraction is EF 55-60 %. Right Ventricle Normal right ventricle. Normal systolic function. Atria Normal left atrium. Normal right atrium. Mitral Valve The mitral valve is structurally normal. No prolapse or stenosis seen. Tricuspid Valve Normal tricuspid valve. Aortic Valve Normal aortic valve. Pulmonic Valve The pulmonic valve is not well visualized. Great Vessels Normal aortic root. Pericardium/Pleural No pericardial effusion. Medication Performed a rapid injection of agitated mix of 9 cc saline and 1cc air to assess for atrial septal defect. MMode/2D Measurements & Calculations LVIDd: 4.9 cm IVSd: 0.84 cm Ao root diam: 3.3 cm LVIDs: 3.5 cm LVPWd: 0.76 cm RVDd: 3.2 cm FS: 29.4 % LAV(MOD-bp): 64.2 ml LA A4 area: 21.8 cm2 LA dimension(2D): 4.0 cm LAV(MOD-bp) Indexed: 29.9 ml/m2 LAV(MOD-sp2): 61.8 ml LAV(MOD-sp4): 59.7 ml RA A4 area: 10.5 cm2 Time Measurements MV dec time: 0.19 sec Doppler Measurements & Calculations MV E max dwaine: 80.4 cm/sec Lat Peak E' Dwaine: 10.8 cm/sec Med Peak E' Dwaine: 6.9 cm/sec MV A max dwaine: 71.5 cm/sec E/E' lat: 7.4 E/E' med: 11.6 MV E/A: 1.1 Ao V2 max: 135.1 cm/sec LV V1 max: 122.6 cm/sec PA V2 max: 94.7 cm/sec Ao max P.3 mmHg LV V1 max P.0 mmHg ECHO/Echo Complete Interpretation Summary The estimated ejection fraction is EF 55-60 %. Normal LV systolic function No prior echo to compare Ordering Physician: Rafiq Crowe Referring Physician: Yohan Ervin Performed By: Sahra Youngblood RDCS, RVT
[2021-02-17] MEDS: Acetaminophen 325 MG Tablet 650 MG PO (18:01)
[2021-02-17 18:08] LABS: Troponin-I HS 6 pg/mL (3.0-54.0)
--- NOTE | 2021-02-17 18:40 | PCS.PANDOC ---
PANDEMIC DOCUMENTATION INITIATED: Date: 01/03/2021 Time: 190
[2021-02-18] VITALS (8 sets, daily range): BP systolic 104–118; BP diastolic 63–75; PULSE 62–76; RESP 12–16; TEMP 36.5–36.8; O2SAT 94–98; BMI 39.3
[2021-02-18 08:03] LABS: Cholesterol 191 mg/dL (200); High Density Lipoprotein 36 mg/dL; Triglycerides 227 mg/dL; Very Low Density Lipoprotein 45 mg/dL (5-40)
[2021-02-18 08:31] LABS: Bedside Glucose 107 mg/dL (70-110)
--- NOTE | 2021-02-18 09:30 | MRI_ITS ---
STUDY: MRI BRAIN WITHOUT CONTRAST REASON FOR EXAM: Female, 50 years old. left sided weakness TECHNIQUE: Standardized multiplanar fat and water weighted pulse sequences were obtained. COMPARISON: CT Brain Feb 17 2021 FINDINGS: Normal size of the ventricles and extra-axial spaces for the patient''s age. Normal white matter tracts of the supratentorial brain. Normal bilateral basal ganglia. Normal thalami. There is no extra-axial fluid accumulation. Normal flow voids within the major intracranial circulation suggesting patency by spin echo criteria. Normal sella turcica, pituitary gland, infundibular stalk, optic chiasm and hypothalamus. Normal tectal plate and pineal gland. Normal midbrain, jethro and medulla. Normal cerebellum. MRI/Brain without Contrast IMPRESSION: Unremarkable unenhanced MRI of the brain. Electronically Signed: Eber Cox MD at 8:27 EDT Tel , Service support ,
[2021-02-18] MEDS: Ketorolac 15 MG/ML Vial IV (09:57)
[2021-02-18] MEDS: Spironolactone 50 MG Tablet PO (09:58)
[2021-02-18] MEDS: Losartan Potassium 25 MG Tablet PO (09:58)
[2021-02-18] MEDS: Pantoprazole Sodium 20 MG Tablet PO (09:58)
[2021-02-18] MEDS: hydroCHLOROthiazide 6.25mg TAB 6.25 MG PO (09:58)
[2021-02-18] MEDS: Cholecalciferol (VIT D3) 25 MCG TABLET (1,000 UNITS) PO (09:58)
[2021-02-18] MEDS: 0.9% Saline Lock 10 ML Syringe IV (10:01)
[2021-02-18] MEDS: Bisoprolol Fumarate 5 MG Tablet 2.5 MG PO (10:09)
--- NOTE | 2021-02-18 13:16 | CASEMGMT ---
SW did not complete a PHQ9 as patient did not have a Stroke or TIA per physician. Valentina [place]
--- NOTE | 2021-02-18 15:08 | PCM.DC.SUM ---
Providers Date of Admission: 02/17/21 Primary Care Physician: Dr. Yohan Ervin MD Reason For Visit: TIA Diagnosis Discharge Diagnosis (1) Left sided numbness: Status: Acute Code(s): R20.0 - Anesthesia of skin (2) Atypical migraine: Status: Acute Code(s): G43.009 - Migraine without aura, not intractable, without status migrainosus Medications at Discharge Home Medications spironolactone 50 mg PO DAILY 02/04/16 bisoprolol-hydrochlorothiazide 1 tab PO DAILY 03/20/19 cholecalciferol (vitamin D3) 25 mcg PO DAILY 02/17/21 cranberry fruit 475 mg PO BID 02/17/21 losartan 25 mg PO DAILY 02/17/21 multivitamin 1 tab PO DAILY 02/17/21 pantoprazole 20 mg PO DAILY 02/17/21 turmeric root extract 500 mg PO DAILY 02/17/21 ibuprofen 800 mg PO DAILY PRN #1 tab 02/18/21 sumatriptan succinate [Imitrex] 50 mg PO Q2H PRN #10 tab 02/18/21 Hospital Course Operations None Procedures 2-D Echocardiogram Summary of Care Provided Minutes Spent on Discharge: 28 Hospital Course: 50-year-old female presents with headache and left-sided weakness. Please refer to the history and physical for more specific details. Patient underwent an MRI that showed no evidence of a stroke. Patient said that her headache began the day before and then got worse after doing water aerobics and then was experiencing left-sided numbness. Patient is NIH in my evaluation was 0. Patient did receive a dose of Toradol and that seemed to eventually alleviated her symptoms. Patient still with low-grade headache at this time but much better. Discussed with patient that this is likely an atypical migraine given her history of migraines and also the negative MRI. Patient expressed and apprehensions about NSAIDs given her CKD 2. But tolerated it be okay if it every once in a while to take. Patient also be given prescription for sumatriptan to take for abortive agents for migraines. Patient states that she is only had 2 migraines over the past couple months I do not feel any counter prophylaxis is necessary at this time. Patient will be discharged home in stable condition. Concern for underlying sleep apnea. Patient advised to follow-up pulmonology for polysomnogram. Physical Exam Const alert Resp normal respiratory effort, no retractions, no use of accessory muscles and clear to auscultation bilaterally Cardio regular rate, regular rhythm, S1 normal heart sound and S2 normal heart sound GI normal to inspection, nondistended, normoactive bowel sounds, soft to palpation, non-tender and non-distended Weight / BMI Weight Weight: 110.5 kg Body Mass Index (BMI) 39.3 ABG / Lab / Microbiology Data Result Diagrams: 02/17/21 13:25 02/17/21 13:25 Laboratory: Laboratory Results - last 24 hr 02/17/21 13:10: POC Glucose 107 02/17/21 17:46: Troponin I High Sens 6 02/18/21 06:30: Triglycerides 227 H, Cholesterol 191, LDL Cholesterol 110, VLDL Cholesterol 45 H, HDL Cholesterol 36 L Radiography Diagnostic Testing: Radiology Impression Brain MRI 02/18/21 09:30 IMPRESSION: Unremarkable unenhanced MRI of the brain. Electronically Signed: Eber Cox MD at 8:27 EDT Tel , Service support , D/C Instructions Discharge Diet: No restrictions Meaningful Use Info Meaningful Use Diagnoses (Choose all that apply): None applicable Discharge Plan Admission Admit Date/Time: 02/17/21 17:08 Primary Reason for Your Visit: Atypical Migraine. Attending Provider: Rafiq Crowe Primary Care Provider: Yohan Ervin Discharge Orders/Prescriptions Prescriptions: New sumatriptan succinate [Imitrex] 50 mg tablet 50 mg PO Q2H PRN (Reason: migraine headache) Qty: 10 RF: 0 ibuprofen 800 mg tablet 800 mg PO DAILY PRN (Reason: pain) Qty: 1 RF: 0 Continued spironolactone 50 MG tablet 50 mg PO DAILY RF: 0 bisoprolol-hydrochlorothiazide 2.5-6.2 tablet 1 tab PO DAILY RF: 0 pantoprazole 20 mg tablet,delayed release (DR/EC) 20 mg PO DAILY RF: 0 losartan 25 mg tablet 25 mg PO DAILY RF: 0 multivitamin Tablet 1 tab PO DAILY RF: 0 cholecalciferol (vitamin D3) 25 mcg (1,000 unit) Capsule 25 mcg PO DAILY RF: 0 cranberry fruit 475 mg Capsule 475 mg PO BID RF: 0 turmeric root extract 500 mg Capsule 500 mg PO DAILY RF: 0 Referrals / Follow Up: Teo Brown MD [STAFF PHYSICIAN] - Within 1 Month (Concern for JIMENA. ) Yohan Ervin MD [Primary Care Provider] - Within 1 Week Disposition Disposition (needs filled in before D/C Order can be placed): Home, Self Care Charges/Coding Visit Charges Inpatient E&M: 87166 Disch Hosp
--- NOTE | 2021-02-18 15:08 | PCM.DC ---
Discharge Instructions Diet Discharge Diet: No restrictions Activity Discharge Activity: Return to Normal Activity Dressing / Incision Call your doctor if you observe: - (unilateral weakness or numbness. Intractable headache. ) Follow Up Care Test Results: Test results from this visit will be discussed in further detail at your follow-up appointment, if applicable. Discharge Plan Admission Admit Date/Time: 02/17/21 17:08 Primary Reason for Your Visit: Atypical Migraine. Attending Provider: Rafiq Crowe Primary Care Provider: Yohan Ervin Discharge Orders/Prescriptions Prescriptions: New sumatriptan succinate [Imitrex] 50 mg tablet 50 mg PO Q2H PRN (Reason: migraine headache) Qty: 10 RF: 0 ibuprofen 800 mg tablet 800 mg PO DAILY PRN (Reason: pain) Qty: 1 RF: 0 Continued spironolactone 50 MG tablet 50 mg PO DAILY RF: 0 bisoprolol-hydrochlorothiazide 2.5-6.2 tablet 1 tab PO DAILY RF: 0 pantoprazole 20 mg tablet,delayed release (DR/EC) 20 mg PO DAILY RF: 0 losartan 25 mg tablet 25 mg PO DAILY RF: 0 multivitamin Tablet 1 tab PO DAILY RF: 0 cholecalciferol (vitamin D3) 25 mcg (1,000 unit) Capsule 25 mcg PO DAILY RF: 0 cranberry fruit 475 mg Capsule 475 mg PO BID RF: 0 turmeric root extract 500 mg Capsule 500 mg PO DAILY RF: 0 Referrals / Follow Up: Yohan Ervin MD [Primary Care Provider] - Within 1 Week Disposition Disposition (needs filled in before D/C Order can be placed): Home, Self Care
== END 2021-02-18 15:12 | disposition home or self-care (01) ==
LOC: ED 13:42 → PCU 02-18 07:28
PROVIDERS: Emergency Provider Emergency Medicine; PCP Internal Medicine
DX: G43.009 Migraine without aura, not intractable, without status migrainosus (principal); Z23 Encounter for immunization; I12.9 Hypertensive chronic kidney disease with stage 1 through stage 4 chronic kidney disease, or unspecified chronic kidney disease; N18.9 Chronic kidney disease, unspecified; R53.1 Weakness; R20.0 Anesthesia of skin; Z79.899 Other long term (current) drug therapy; R29.702 NIHSS score 2; L40.50 Arthropathic psoriasis, unspecified; N18.2 Chronic kidney disease, stage 2 (mild); Z86.16 Personal history of COVID-19; Z28.3 Underimmunization status
CPT/HCPCS: 36415; 70450; 70496; 70498; 70551; 71045; 80048; 80061; 82962; 84484; 85025; 85610; 85730; 93005; 93306; 94762; 96361; 96374; 97161; 99218; 99282; J2997; J7030; Q9967; 90686; A4216; G0378

== ENCOUNTER → 2021-05-05 20:25 | Outpatient (CLI) | payer OTHER, SELFPAY | PROVIDERS: PCP Family Medicine; Visit Provider Nurse Practitioner Acute Care | DX: G47.33 Obstructive sleep apnea (adult) (pediatric) (principal) | CPT/HCPCS: 95810 ==